=== PATIENT | male | born 1960 | race Caucasian/White ===

== ENCOUNTER 2016-03-24 08:37 | Outpatient (CLI) ==
[2015-07-16 14:58] VITALS: BMI 31.3
[2016-03-24 09:09] LABS: BASOPHILS # (AUTO) 0.1 K/uL (0-0.2); BASOPHILS % (AUTO) 0.9 % (0.0-3.0); BILIRUBIN,URINE Negative (NEGATIVE); EOSINOPHILS # (AUTO) 0.2 K/ul (0.0-0.7); EOSINOPHILS % (AUTO) 1.1 % (0.0-7.0); HEMATOCRIT 49.2 % (42.0-52.0); IMMATURE GRANULOCYTE % (AUTO) 0.5 % (0.0-5.0); KETONES,URINE Negative (NEGATIVE); LEUKOCYTE ESTERASE ,URINE Negative (NEGATIVE); LYMPHOCYTES % (AUTO) 14.5 (10.0-50.0); MEAN CORPUSCULAR HEMOGLOBIN 28.5 pg (27.0-31.0); MEAN CORPUSCULAR HGB CONC 32.5 (31.8-35.4); MEAN CORPUSCULAR VOLUME 87.5 fl (80.0-94.0); MONOCYTES # (AUTO) 0.9 K/uL (0.4-2.0); MONOCYTES % (AUTO) 6.7 (0-10); NEUTROPHILS # (AUTO) 10.5 K/ul (2.0-6.9); NEUTROPHILS % (AUTO) 76.3; NITRITE,URINE Negative (NEGATIVE); PH,URINE 5.5 (5-9); PLATELET COUNT 461 10^3/uL (140-440); PROTEIN,URINE 2+ (NEGATIVE); RED BLOOD COUNT 5.62 10^6/ul (4.70-6.10); URINE, BLOOD Negative (NEGATIVE); WHITE BLOOD COUNT 13.79 K/ul (4.2-10.2)
[2016-03-24 09:13] LABS: ADD URINE MICROSCOPIC YES
[2016-03-24 09:45] LABS: ALBUMIN/GLOBULIN RATIO 1.03; ANION GAP 18.6; BILIRUBIN,TOTAL 0.61 mg/dL (0.00-1.20); BUN/CREATININE RATIO 18.86; CALCIUM 9.9 mg/dL (8.2-10.2); CREATININE 1.06 mg/dL (0.60-1.10); POTASSIUM 3.6 mmol/L (3.5-5.1); TOTAL PROTEIN 7.9 g/dL (6.4-8.2)
== END 2016-03-24 08:38 | disposition home or self-care (01) ==
LOC: LAB 08:37
PROVIDERS: ATTEND General Practice
DX: E11.8 Type 2 diabetes mellitus with unspecified complications (principal); M54.5 Low back pain; I10 Essential (primary) hypertension; E88.81 Metabolic syndrome and other insulin resistance; M79.605 Pain in left leg; Z86.73 Personal history of transient ischemic attack (TIA), and cerebral infarction without residual deficits; Z79.899 Other long term (current) drug therapy
CPT/HCPCS: 36415; 80053; 80061; 81001; 83036; 85025

== ENCOUNTER 2016-05-26 11:34 | Outpatient (CLI) ==
[2015-07-16 14:58] VITALS: BMI 31.3
[2016-05-26 14:05] LABS: ALBUMIN 3.7 g/dL (3.4-5.0); ALBUMIN/GLOBULIN RATIO 0.97; ANION GAP 17.8; BILIRUBIN,TOTAL 0.61 mg/dL (0.00-1.20); BUN/CREATININE RATIO 20.68; CALCIUM 9.4 mg/dL (8.2-10.2); CREATININE 0.87 mg/dL (0.60-1.10); POTASSIUM 3.8 mmol/L (3.5-5.1); TOTAL PROTEIN 7.5 g/dL (6.4-8.2)
== END 2016-05-26 11:35 | disposition home or self-care (01) ==
LOC: LAB 11:34
PROVIDERS: ATTEND General Practice
DX: I10 Essential (primary) hypertension (principal); E78.5 Hyperlipidemia, unspecified
CPT/HCPCS: 36415; 80053; 80061

== ENCOUNTER 2016-09-26 11:26 | Outpatient (CLI) ==
[2015-07-16 14:58] VITALS: BMI 31.3
[2016-09-26 12:38] LABS: BASOPHILS # (AUTO) 0.1 K/uL (0-0.2); BASOPHILS % (AUTO) 0.9 % (0.0-3.0); EOSINOPHILS # (AUTO) 0.1 K/ul (0.0-0.7); EOSINOPHILS % (AUTO) 1.5 % (0.0-7.0); IMMATURE GRANULOCYTE % (AUTO) 0.5 % (0.0-5.0); LYMPHOCYTES # (AUTO) 1.8 K/uL (0.60-3.4); LYMPHOCYTES % (AUTO) 19.5 (10.0-50.0); MEAN CORPUSCULAR HEMOGLOBIN 29.5 pg (27.0-31.0); MEAN CORPUSCULAR HGB CONC 33.3 (31.8-35.4); MEAN CORPUSCULAR VOLUME 88.6 fl (80.0-94.0); MONOCYTES # (AUTO) 0.7 K/uL (0.4-2.0); MONOCYTES % (AUTO) 7.1 (0-10); NEUTROPHILS # (AUTO) 6.5 K/ul (2.0-6.9); NEUTROPHILS % (AUTO) 70.5; PLATELET COUNT 431 10^3/uL (140-440); RED BLOOD COUNT 5.42 10^6/ul (4.70-6.10); WHITE BLOOD COUNT 9.26 K/ul (4.2-10.2)
[2016-09-26 12:43] LABS: BILIRUBIN,URINE Negative (NEGATIVE); KETONES,URINE Negative (NEGATIVE); LEUKOCYTE ESTERASE ,URINE Negative (NEGATIVE); NITRITE,URINE Negative (NEGATIVE); PH,URINE 5.5 (5-9); PROTEIN,URINE 2+ (NEGATIVE); URINE, BLOOD Negative (NEGATIVE)
[2016-09-26 12:47] LABS: ADD URINE MICROSCOPIC YES
[2016-09-26 12:53] LABS: ALBUMIN 4.2 g/dL (3.4-5.0); ALBUMIN/GLOBULIN RATIO 1.2; ANION GAP 17.1; BILIRUBIN,TOTAL 0.42 mg/dL (0.00-1.20); BUN/CREATININE RATIO 15.3; CALCIUM 9.8 mg/dL (8.2-10.2); CHOL/HDL RATIO 5.5 (4.5-6.4); CREATININE 0.98 mg/dL (0.60-1.10); POTASSIUM 4.1 mmol/L (3.5-5.1); TOTAL PROTEIN 7.7 g/dL (6.4-8.2)
== END 2016-09-26 11:27 | disposition home or self-care (01) ==
LOC: LAB 11:26
PROVIDERS: ATTEND General Practice
DX: M79.605 Pain in left leg (principal); M54.5 Low back pain; I10 Essential (primary) hypertension; E11.8 Type 2 diabetes mellitus with unspecified complications; E88.81 Metabolic syndrome and other insulin resistance; E78.5 Hyperlipidemia, unspecified; Z86.73 Personal history of transient ischemic attack (TIA), and cerebral infarction without residual deficits; Z79.899 Other long term (current) drug therapy
CPT/HCPCS: 36415; 80053; 80061; 81001; 83036; 85025

== ENCOUNTER 2016-09-29 13:32 | Outpatient (CLI) ==
[2015-07-16 14:58] VITALS: BMI 31.3
--- NOTE | 2016-09-29 14:19 | DI ---
EXAM: Radiographs, left knee HISTORY: Left knee pain. COMPARISON: None available. TECHNIQUE: Four views. FINDINGS: Bone mineralization is normal. Serpiginous sclerosis seen in the distal femoral metadiap hysis. Mild medial compartment joint space narrowing and subchondral sclerosis noted. Mild margina l osteophyte formation seen in the patellofemoral compartment. No erosive changes are seen. Athero sclerotic calcifications are present. IMPRESSION: 1. Mild medial and patellofemoral osteoarthritis. 2. 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
== END 2016-09-29 13:33 | disposition home or self-care (01) ==
LOC: RAD 13:32
PROVIDERS: ATTEND General Practice
DX: M25.562 Pain in left knee (principal)

== ENCOUNTER 2016-12-29 12:37 | Outpatient (CLI) ==
[2015-07-16 14:58] VITALS: BMI 31.3
[2016-12-29 16:56] LABS: COCAIN SCREEN,URINE NEGATIVE (NEGATIVE)
== END 2016-12-29 12:38 | disposition home or self-care (01) ==
LOC: LAB 12:37
PROVIDERS: ATTEND General Practice
DX: F11.90 Opioid use, unspecified, uncomplicated (principal)
CPT/HCPCS: 80306

== ENCOUNTER 2017-02-20 12:55 | Outpatient (CLI) ==
[2015-07-16 14:58] VITALS: BMI 31.3
[2017-02-20 13:13] LABS: BASOPHILS # (AUTO) 0.1 K/uL (0-0.2); BASOPHILS % (AUTO) 1.1 % (0.0-3.0); EOSINOPHILS # (AUTO) 0.1 K/ul (0.0-0.7); EOSINOPHILS % (AUTO) 1.5 % (0.0-7.0); HEMATOCRIT 45.7 % (42.0-52.0); HEMOGLOBIN 15.1 g/dl (14.0-18.0); IMMATURE GRANULOCYTE % (AUTO) 0.4 % (0.0-5.0); LYMPHOCYTES # (AUTO) 1.3 K/uL (0.60-3.4); LYMPHOCYTES % (AUTO) 14.1 (10.0-50.0); MEAN CORPUSCULAR VOLUME 87.9 fl (80.0-94.0); MONOCYTES # (AUTO) 0.6 K/uL (0.4-2.0); MONOCYTES % (AUTO) 6.3 (0-10); NEUTROPHILS % (AUTO) 76.6; PLATELET COUNT 315 10^3/uL (140-440)
[2017-02-20 13:17] LABS: BILIRUBIN,URINE Negative (NEGATIVE); KETONES,URINE Negative (NEGATIVE); LEUKOCYTE ESTERASE ,URINE Negative (NEGATIVE); NITRITE,URINE Negative (NEGATIVE); PROTEIN,URINE Trace (NEGATIVE); URINE, BLOOD Negative (NEGATIVE)
[2017-02-20 13:19] LABS: ADD URINE MICROSCOPIC YES
[2017-02-20 13:27] LABS: CHOL/HDL RATIO 6.6 (4.5-6.4)
== END 2017-02-20 12:56 | disposition home or self-care (01) ==
LOC: LAB 12:55
PROVIDERS: ATTEND General Practice
DX: E88.81 Metabolic syndrome and other insulin resistance (principal); E11.8 Type 2 diabetes mellitus with unspecified complications; I10 Essential (primary) hypertension; Z12.5 Encounter for screening for malignant neoplasm of prostate; Z79.899 Other long term (current) drug therapy
CPT/HCPCS: 36415; 80061; 81001; 83036; 85025

== ENCOUNTER 2017-06-26 13:31 | Outpatient (CLI) ==
[2015-07-16 14:58] VITALS: BMI 31.3
== END 2017-06-26 13:32 | disposition home or self-care (01) ==
LOC: FCC-LAB 13:31
PROVIDERS: ATTEND General Practice
DX: E11.8 Type 2 diabetes mellitus with unspecified complications (principal); E55.9 Vitamin D deficiency, unspecified; E78.5 Hyperlipidemia, unspecified; I10 Essential (primary) hypertension; Z79.899 Other long term (current) drug therapy; Z86.73 Personal history of transient ischemic attack (TIA), and cerebral infarction without residual deficits
CPT/HCPCS: 36415; 80053; 80061; 81001; 82306; 83036; 85025

== ENCOUNTER 2017-08-24 11:28 | Outpatient (CLI) ==
[2015-07-16 14:58] VITALS: BMI 31.3
== END 2017-08-24 11:29 | disposition home or self-care (01) ==
LOC: FCC-LAB 11:28
PROVIDERS: ATTEND General Practice
DX: E55.9 Vitamin D deficiency, unspecified (principal)
CPT/HCPCS: 36415; 82306

== ENCOUNTER 2017-08-28 09:59 | Outpatient (CLI) ==
[2015-07-16 14:58] VITALS: BMI 31.3
--- NOTE | 2017-08-28 11:59 | CT ---
EXAM: CT scan abdomen pelvis without contrast HISTORY: Abnormal rectal exam COMPARISON: CT scan abdomen pelvis 02/14/2014 FINDINGS: Contiguous axial images obtained through the abdomen pelvis without contrast utilizing 5-m m collimation. Sagittal coronal reconstructions were imaged and reviewed. There is diffuse fatty in filtration with enlargement of the right lobe of liver. Gallbladder is fluid filled without cholelit hiasis. Pancreas spleen and right adrenal gland normal. There is stable thickening of the left adre nal gland. Atherosclerotic changes are seen involving the aorta without aneurysm formation. There i s a stable there has been interval increase in exophytic cyst interpolar region left kidney measures 4.9 cm. Prior measurement is 2.9 cm. Right kidney unremarkable.. Redemonstrated is a posterior pel antonia mass which appears to displace the rectosigmoid colon to the right of midline measuring 11.2 x 8. 0 x 6.4 cm. Prior measurement 7.2 x 5.3 x 10.3 centimeters. The bladder small volume which limits ev aluation. Prostate gland normal in size.. There are no osteoblastic or osteolytic IMPRESSION: Hepatomegaly with diffuse fatty infiltration. ASVD without aneurysm. Interval increase in left renal cyst which could be further evaluated with ultrasound. Mild interval increase in previously noted central pelvic mass which displaces the rectum to the righ t of midline..
== END 2017-08-28 10:00 | disposition home or self-care (01) ==
LOC: RAD 09:59
PROVIDERS: ATTEND General Practice
DX: K62.9 Disease of anus and rectum, unspecified (principal); R10.9 Unspecified abdominal pain
CPT/HCPCS: 82272

== ENCOUNTER 2017-09-14 08:32 | Outpatient (CLI) ==
[2015-07-16 14:58] VITALS: BMI 31.3
--- NOTE | 2017-09-14 11:05 | CT ---
EXAM: CT abdomen pelvis with contrast HISTORY: Kidney and pelvic mass COMPARISON: CT abdomen pelvis 08/28/2017 and CTA 02/14/2014 TECHNIQUE: Serial axial images of the abdomen pelvis were performed after 75 mL is of Omnipaque IV c ontrast was administered. These were obtained from the lung bases through the inferior pelvis. FINDINGS: The lung bases are clear. The liver demonstrates diffuse low attenuation. There is no focal hepatic lesion. The gallbladder i s unremarkable. The common duct is unremarkable. The adrenal glands are unremarkable. The right ki dney is unremarkable. The left kidney demonstrates an exophytic low attenuation lesion measuring 4.8 cm in diameter with Hounsfield units which are indeterminate. There is no hydronephrosis or hydrour eter. The spleen is unremarkable. The pancreas is unremarkable. Stomach is normal. The small bowel in the abdomen pelvis is normal. There is ventral abdominal yoder tases. There are surgical changes suggestive of prior appendectomy. Colon is unremarkable. There i s a heterogeneous central low attenuation mass in the pelvis on the left displacing the distal nondis tended colon measuring 5.8 x 7.2 cm with indeterminate Hounsfield units. Differences in measurement likely represent slice selection. There is moderate atherosclerotic disease. There is no lymphadeno max or free air. The osseous structures demonstrate degenerative disease of the spine. IMPRESSION: 1. Nonspecific low attenuation mass in the left pelvis causing mass effect on the adjacent nondisten ded colon. This is not significantly changed in comparison to prior study. This has been present sin ce 2013. 2. Low attenuation exophytic lesion of the left kidney is of indeterminate Hounsfield units and ultr asound is recommended. 3. Hepatic steatosis.
== END 2017-09-14 08:33 | disposition home or self-care (01) ==
LOC: RAD 08:32
PROVIDERS: ATTEND General Practice
DX: R19.00 Intra-abdominal and pelvic swelling, mass and lump, unspecified site (principal); N28.89 Other specified disorders of kidney and ureter
CPT/HCPCS: 36415; 82565

== ENCOUNTER 2017-09-18 07:27 | Outpatient (CLI) ==
[2015-07-16 14:58] VITALS: BMI 31.3
--- NOTE | 2017-09-18 09:19 | US ---
EXAM: Renal ultrasound HISTORY: Other specified disorders of kidney and ureter COMPARISON: CT 09/14/2017 TECHNIQUE: Renal ultrasound was performed. FINDINGS: Right kidney measures 4.1 x 3.8 x 10.7 cm. Left kidney measures 5.7 x 4.4 x 4.5 cm. Heydi l cortical echogenicity is normal. No hydronephrosis or renal calculus large enough to cause acousti c shadowing. There is a simple anechoic cyst in the left inferior kidney measuring 4.7 x 5.3 x 4.6 c m. Bladder only minimally distended and poorly evaluated, grossly unremarkable. Visualized liver ap pears echogenic. IMPRESSION: 1. 5.3 cm left renal cyst. 2. No hydronephrosis. 3. Hepatic steatosis
== END 2017-09-18 07:28 | disposition home or self-care (01) ==
LOC: RAD 07:27
PROVIDERS: ATTEND General Practice
DX: N28.89 Other specified disorders of kidney and ureter (principal)
CPT/HCPCS: 76770

== ENCOUNTER 2017-10-21 10:25 | Outpatient (CLI) ==
[2015-07-16 14:58] VITALS: BMI 31.3
== END 2017-10-21 10:26 | disposition home or self-care (01) ==
LOC: FCC-LAB 10:25
PROVIDERS: ATTEND General Practice
DX: E11.8 Type 2 diabetes mellitus with unspecified complications (principal); I10 Essential (primary) hypertension; E55.9 Vitamin D deficiency, unspecified; E78.5 Hyperlipidemia, unspecified; E88.81 Metabolic syndrome and other insulin resistance; Z79.899 Other long term (current) drug therapy; Z86.73 Personal history of transient ischemic attack (TIA), and cerebral infarction without residual deficits
CPT/HCPCS: 36415; 80053; 80061; 82306; 83036; 85025

== ENCOUNTER 2017-10-26 15:12 | Outpatient (CLI) ==
[2015-07-16 14:58] VITALS: BMI 31.3
== END 2017-10-26 15:13 | disposition home or self-care (01) ==
LOC: FCC-LAB 15:12
PROVIDERS: ATTEND General Practice
DX: Z79.899 Other long term (current) drug therapy (principal)
CPT/HCPCS: 81001

== ENCOUNTER 2017-12-10 20:42 | Emergency (ER) ==
[2017-12-10 20:44] VITALS: BP 133/92; TEMP 98.7; BMI 32.9
--- NOTE | 2017-12-10 20:58 | ED.PDOC ---
General ED Provider: Dr. АЛЕКСАНДР STOREY-ER Chief Complaint: Fall Stated Complaint: i fell and i hurt Time Seen by Physician: 20:45 Mode of Arrival: Walk-In Information Source: Patient Exam Limitations: No limitations [facility] and Triage Documentation Reviewed and Agree: Yes Does patient meet sepsis criteria?: No System Inflammatory Response Syndrome: Not Applicable Sepsis Protocol: For patient's 13 years and over: Temp is 96.8 and below OR 101 and greater Pulse >90 BPM Resp >20/minute Acutely Altered Mental Status Are patient's symptoms suggestive of a new infection, such as: -Pneumonia -Skin, Soft Tissue -Endocarditis -UTI -Bone, Joint Infection -Implantable Device -Acute Abdominal Infection -Wound Infection -Meningitis -Blood Stream Catheter Infection -Unknown Musculoskeletal Complaint Exam - Back Pain Complaint/Exam Mechanism of Injury: Reports: Trauma Onset/Duration: several hours Symptoms Are: Still present Timing: Constant Initial Severity: Mild Current Severity: Moderate Location: Reports: Discrete Character: Reports: Dull, Aching Aggravating: Reports: Movements, Lifting, Bending, Walking Alleviating: Reports: None Associated Signs and Symptoms: Denies: Swelling, Redness, Bruising, Fever, Weakness, Numbness, Tingling, Abdominal pain, Flank pain, Bladder incontinence, Bowel incontinence, Weight loss, Pain with weight bearing Epidural Abcess Risk Factors: Reports: None Related Surgical History: Reports: None Focal Tenderness: Yes Paraspinal Muscle Tenderness: No Paraspinal Muscle Spasm: No Scoliosis: No Lordosis: No Kyphosis: No SLR Test: Right Negative, Left Negative Hip Motion Testing Pain: Right Negative, Left Negative Focal Weakness: Present: None Focal Sensory Loss: Present: None Gait: Present: Normal Differential Diagnoses: Fracture, Strain, Sprain Review of Systems - Review Of Systems Constitutional: Reports: No symptoms Eyes: Reports: No symptoms Ears, Nose, Mouth, Throat: Reports: No symptoms Respiratory: Reports: No symptoms Cardiac: Reports: No symptoms GI: Reports: No symptoms : Reports: No symptoms Musculoskeletal: Reports: Back pain Skin: Reports: No symptoms Neurological: Reports: No symptoms Endocrine: Reports: No symptoms Hematologic/Lymphatic: Reports: No symptoms All Other Systems: Reviewed and Negative Past Medical History - Past Medical History Previously Healthy: No Endocrine: Reports: DM 2, Dyslipidemia Cardiovascular: Reports: Hypertension Respiratory: Reports: COPD Hematological: Reports: None Gastrointestinal: Reports: None Genitourinary: Reports: CKD Neuro/Psych: Reports: CVA Musculoskeletal: Reports: None Cancer: Reports: None - Surgical History General Surgical History: Reports: Appendectomy, Hernia Repair - Family History Family History: Reports: Unknown - Social History Smoking Status: Former smoker Hx Substance Use: No Alcohol Screening: None - Immunizations Tetanus Shot up to Date: No Physical Exam - Physical Exam Appearance: Well-appearing, No pain distress, Well-nourished Pain Distress: Moderate Eyes: RAISA, EOMI, Conjunctiva clear ENT: Ears normal, Nose normal, Oropharynx normal Neck: Supple Respiratory: Airway patent, Breath sounds clear, Breath sounds equal, Respirations nonlabored Cardiovascular: RRR, Pulses normal, No rub, No murmur GI/: Soft, Nontender, No masses, Bowel sounds normal, No Organomegaly Musculoskeletal: Limited ROM Skin: Warm, Dry, Normal color Neurological: Sensation intact, Motor intact, Reflexes intact, Cranial nerves intact, Alert, Oriented Psychiatric: Affect appropriate Interpretation - Radiology Interpretation Radiology Interpretation By: Radiologist Radiology Results: Negative Exam Interpreted: CT Scan Critical Care Note - Critical Care Note Total Time (mins): 0 Course - Course Orders, Labs, Meds: Orders Category Date Time Status CT LUMBAR SPINE W/O CONTRAST Stat RADS 12/10/17 20:[address] PELVIS W/O CONTRAST Stat RADS 12/10/17 20:47 Completed FEMUR, LEFT 2 VIEWS Stat RADS 12/10/17 20:47 Completed Vital Signs: Temp Pulse Resp BP Pulse Ox 12/10/17 20:42 98.7 F 87 18 133/92 H 96 Departure - Departure Time of Disposition: 22:08 Disposition: HOME SELF-CARE Discharge Problem: Contusion, back Qualifiers: Encounter type: initial encounter Laterality: unspecified laterality Qualified Code(s): S20.229A - Contusion of unspecified back wall of thorax, initial encounter Instructions: Contusion in Adults (ED) Condition: Good Pt referred to PMD for follow-up: No IPMP verified?: No Additional Instructions: norco 5mg q 6hrs prn pain #10---donut cushion--good luck in [place] next week considering perirectal mass Allergies/Adverse Reactions: Allergies No Known Allergies Allergy (Unverified 12/10/17 20:44) Home Medications: Ambulatory Orders Clopidogrel Bisulfate [Plavix] 75 mg PO DAILY 12/09/13 Allopurinol 100 mg PO DAILY 10/13/14 Lovastatin 40 mg PO BEDTIME 10/13/14 Penicillin V Potassium 500 mg PO QID #28 tablet 07/16/15 Disposition Discussed With: Patient, Family
--- NOTE | 2017-12-10 21:25 | DI ---
EXAM: Left femur; AP and lateral views HISTORY: Femur pain post fall FINDINGS: The joint spaces are maintained. No localized soft tissue abnormalities are appreciated. N o fracture or subluxation are detected. The bone density is normal. OPINION: No acute fracture or subluxation.
--- NOTE | 2017-12-10 21:28 | CT ---
EXAM: CT pelvis without contrast HISTORY: Fall on Thursday, tail bone pain and left thigh pain TECHNIQUE: Multi-slice transaxial helical with coronal and sagittal reformed images COMPARISON: CT pelvis from 09/14/2017 FINDINGS: The femoral acetabular joint spaces are mildly narrowed. The pubic symphysis and sacroilia c joint spaces are maintained. No acute fracture or subluxation appreciated. Specifically, the sacr um and coccyx are intact. The abdominal aorta and iliac arteries are atherosclerotic. There is a large cystic left pararectal mass measuring 8.5 x 6.1 cm. This has increased in time when compared to a prior studies. A small inguinal hernia transmits fat. The bones are free of suspicious osteolytic or osteoblastic lesions. IMPRESSION: 1. Indeterminate left pararectal mass. Recommend correlation with pelvic MRI without and with contr ast. This has increased in size over time. 2. No acute fracture or subluxation. 3. Mild femoral acetabular osteoarthritis. 4. ASCVD.
--- NOTE | 2017-12-10 21:31 | CT ---
EXAM: CT lumbar spine without contrast HISTORY: Low back pain post fall TECHNIQUE: Multi-slice transaxial helical with coronal and sagittal reformatted views. COMPARISON: None FINDINGS: There are five lumbar-type vertebrae. The intervertebral joint spaces are mildly narrowed diffusely. No fractures or lithesis are detected. The vertebrae have normal height and alignment. The re is mild nodular thickening of the left adrenal gland with low attenuation up to 2.6 cm. Segmental analysis: T12-L1: No significant disc herniation, central canal stenosis, or neural foramen stenosis. L1-L2: No significant disc herniation, central canal stenosis, or neural foramen stenosis. L2-L3: A mild broad-based disc bulge effaces the thecal sac. The central canal diameter is maintaine d. No significant disc herniation or central canal stenosis. L3-L4: A mild broad-based disc bulge effaces the thecal sac. The central canal diameter is mildly na rrowed. The facets are hypertrophic without significant neural foramen stenosis. L4-L5: A mild broad-based disc bulge effaces the thecal sac. The facets and ligamentum flavum are hy pertrophic. The central canal diameter is moderately narrowed. There is mild right greater than lef t neural foramen stenosis. L5-S1: A mild disc protrusion effaces thecal sac. The central canal diameter is mildly narrowed. Th e facets, hypertrophic with mild bilateral neural foramen stenosis. IMPRESSION: 1. No acute fracture or listhesis. 2. Central canal stenosis; mild at L3-L4, moderate at L formation five, and mild at L5-S1. 3. Neural foramen stenosis; mild right greater than left at L4-L5 and mild in bilaterally at L5-S1. 4. Probable left adrenal adenoma.
== END 2017-12-10 22:12 | disposition home or self-care (01) ==
LOC: ED 20:42
DX: S20.229A Contusion of unspecified back wall of thorax, initial encounter (principal); W19.XXXA Unspecified fall, initial encounter
CPT/HCPCS: 99282

== ENCOUNTER 2017-12-18 20:26 | Emergency (ER) ==
[2017-12-18 20:31] VITALS: BP 138/80; TEMP 97.6; BMI 32.7
--- NOTE | 2017-12-18 20:37 | ED.PDOC ---
General ED Provider: Dr. АЛЕКСАНДР STOREY-ER Chief Complaint: Knee Pain/Injury Stated Complaint: i fell and hurt my knee Time Seen by Physician: 20:36 Mode of Arrival: Ambulance Information Source: Patient Exam Limitations: No limitations [facility] T[facility] Documentation Reviewed and Agree: Yes Does patient meet sepsis criteria?: No System Inflammatory Response Syndrome: Not Applicable Sepsis Protocol: For patient's 13 years and over: Temp is 96.8 and below OR 101 and greater Pulse >90 BPM Resp >20/minute Acutely Altered Mental Status Are patient's symptoms suggestive of a new infection, such as: -Pneumonia -Skin, Soft Tissue -Endocarditis -UTI -Bone, Joint Infection -Implantable Device -Acute Abdominal Infection -Wound Infection -Meningitis -Blood Stream Catheter Infection -Unknown Musculoskeletal Complaint Exam - Knee Pain Complaint/Exam Mechanism of Injury: Reports: Trauma Onset/Duration: one hour Symptoms Are: Still present Onset of Pain: Reports: Immediate Initial Severity: Mild Current Severity: Mild Location: Reports: Discrete Character: Reports: Dull, Aching Aggravating: Reports: Movement, Weight bearing, Prolonged standing Associated Signs and Symptoms: Denies: Swelling, Redness, Bruising, Fever, Weakness, Numbness, Tingling Able to Bear Weight: No Knee Findings: Present: Tenderness, Limited range of motion Nargis Test Positive: No Dejah Test Positive: No Differential Diagnoses: Contusion, Closed Fracture, Internal Derangement, Sprain , Strain Review of Systems - Review Of Systems Constitutional: Reports: No symptoms Eyes: Reports: No symptoms Ears, Nose, Mouth, Throat: Reports: No symptoms Respiratory: Reports: No symptoms Cardiac: Reports: No symptoms GI: Reports: No symptoms : Reports: No symptoms Musculoskeletal: Reports: Joint pain, Muscle pain Skin: Reports: No symptoms Neurological: Reports: No symptoms Endocrine: Reports: No symptoms Hematologic/Lymphatic: Reports: No symptoms All Other Systems: Reviewed and Negative Past Medical History - Past Medical History Previously Healthy: No Endocrine: Reports: DM 2, Dyslipidemia Cardiovascular: Reports: Hypertension Respiratory: Reports: COPD Hematological: Reports: None Gastrointestinal: Reports: None Genitourinary: Reports: CKD Neuro/Psych: Reports: CVA Musculoskeletal: Reports: None Cancer: Reports: None - Surgical History General Surgical History: Reports: Appendectomy, Hernia Repair - Family History Family History: Reports: Unknown - Social History Smoking Status: Former smoker Hx Substance Use: No Alcohol Screening: None - Immunizations Tetanus Shot up to Date: No Physical Exam - Physical Exam Appearance: Well-appearing, No pain distress, Well-nourished Pain Distress: Mild Eyes: RAIAS, EOMI, Conjunctiva clear ENT: Ears normal, Nose normal, Oropharynx normal Neck: Supple Respiratory: Airway patent, Breath sounds clear, Breath sounds equal, Respirations nonlabored Cardiovascular: RRR, Pulses normal, No rub, No murmur GI/: Soft Musculoskeletal: Normal strength, ROM intact, No edema, No calf tenderness Skin: Warm, Dry, Normal color Neurological: Sensation intact, Motor intact, Reflexes intact, Cranial nerves intact, Alert, Oriented Psychiatric: Affect appropriate, Mood appropriate Interpretation - Radiology Interpretation Radiology Interpretation By: Radiologist Radiology Results: Positive Critical Care Note - Critical Care Note Total Time (mins): 0 Course - Course Orders, Labs, Meds: Orders Category Date Time Status KNEE, LEFT 4 VIEWS Stat RADS 12/18/17 20:32 Completed TIBIA/FIBULA, LEFT 2 VIEWS Stat RADS 12/18/17 20:33 Completed Vital Signs: Temp Pulse Resp BP Pulse Ox 12/18/17 20:27 97.6 F 76 20 138/80 96 Departure - Departure Time of Disposition: 21:40 Disposition: HOME SELF-CARE Discharge Problem: Patellar fracture Qualifiers: Encounter type: subsequent encounter Fracture type: closed Fracture morphology : unspecified fracture morphology Fracture alignment: nondisplaced Laterality: left Fracture healing: with routine healing Qualified Code(s): S82.002D - Unspecified fracture of left patella, subsequent encounter for closed fracture with routine healing Instructions: Patellar Fracture (ED) Condition: Good Pt referred to PMD for follow-up: Yes IPMP verified?: No Additional Instructions: stay in [place]--use crutches---see your pcp and get referral to ortho Allergies/Adverse Reactions: Allergies No Known Allergies Allergy (Unverified 12/10/17 20:44) Home Medications: Ambulatory Orders Clopidogrel Bisulfate [Plavix] 75 mg PO DAILY 12/09/13 Allopurinol 100 mg PO DAILY 10/13/14 Lovastatin 40 mg PO BEDTIME 10/13/14 Hydrocodone/Acetaminophen [Hydrocodone-Acetamin 7.5-325] 1 tab PO Q4HR 12/18/17 Disposition Discussed With: Patient, Family
--- NOTE | 2017-12-18 21:24 | DI ---
EXAM: Two-view left tibia-fibula COMPARISON: Left knee from same day HISTORY: Trauma and pain FINDINGS: There is no acute fracture or dislocation. Alignment is anatomic. Joint spaces are well p reserved and there is no significant degenerative change. There is no soft tissue swelling. No unexpe cted radio-opaque foreign bodies. IMPRESSION: No acute osseous abnormality.
--- NOTE | 2017-12-18 21:26 | DI ---
EXAM: Three-view left knee COMPARISON: Knee left tibia-fibula from same day HISTORY: Trauma and pain FINDINGS: There is a linear vertical lucency seen on the sunrise view in the patella. There are no di splaced fractures identified. There is some minimal degenerative change. There is no soft tissue swe lling. No unexpected radio-opaque foreign bodies. IMPRESSION: 1. Possible nondisplaced patellar fracture versus artifact. Recommend correlation with point tender ness.
[2017-12-18] MEDS ORDERED: MORPHINE 4 MG/ML SYRINGE IM STA (21:42)
[2017-12-18] MEDS ORDERED: ZOFRAN 4 MG/2 ML IM STA (21:42)
== END 2017-12-18 22:30 | disposition home or self-care (01) ==
LOC: ED 20:26
DX: M25.562 Pain in left knee (principal); S82.002D Unspecified fracture of left patella, subsequent encounter for closed fracture with routine healing
CPT/HCPCS: 96372; 99283

== ENCOUNTER 2018-01-11 21:18 | Emergency (ER) ==
[2018-01-11 21:29] VITALS: BP 143/92; TEMP 99.1; BMI 32.6
--- NOTE | 2018-01-11 21:39 | ED.PDOC ---
General ED Provider: Dr. АЛЕКСАНДР STOREY-ER Chief Complaint: Tooth Problem Stated Complaint: my tooth hurts Time Seen by Physician: 21:37 Mode of Arrival: Walk-In Information Source: Patient Exam Limitations: No limitations [facility] T[facility] Documentation Reviewed and Agree: Yes Does patient meet sepsis criteria?: No System Inflammatory Response Syndrome: Not Applicable Sepsis Protocol: For patient's 13 years and over: Temp is 96.8 and below OR 101 and greater Pulse >90 BPM Resp >20/minute Acutely Altered Mental Status Are patient's symptoms suggestive of a new infection, such as: -Pneumonia -Skin, Soft Tissue -Endocarditis -UTI -Bone, Joint Infection -Implantable Device -Acute Abdominal Infection -Wound Infection -Meningitis -Blood Stream Catheter Infection -Unknown EENT Complaint Exam - Dental/Oral Complaint/Exam Mechanism of Injury: No known trauma Onset/Duration: 3 days Symptoms Are: Still present Timing: Constant Initial Severity: Mild Current Severity: Moderate Location: right lower pre molar Character: Reports: Dull, Aching, Throbbing Associated Signs and Symptoms: Reports: Swelling Related History: Reports: Previous tooth problem Tooth Findings: Present: Percussion tenderness Cervical Lymphadenopathy Present: No Facial Swelling Present: No Bleeding Present: No Oropharynx Findings: Absent: Clots, Active bleeding Septal Hematoma: No Foreign Body Present: No Dysphagia Present: No Drooling Present: No Asymmetrical Tonsillar Swelling Present: No Uvula Midline: Yes Pratibha-tonsillar Fluctuence: No Trismus Present: No Palatal Petechiae Present: No Scarlatinaform Rash Present: No Differential Diagnoses: Dental Caries Review of Systems - Review Of Systems Constitutional: Reports: No symptoms Eyes: Reports: No symptoms Ears, Nose, Mouth, Throat: Reports: Mouth pain Respiratory: Reports: No symptoms Cardiac: Reports: No symptoms GI: Reports: No symptoms : Reports: No symptoms Musculoskeletal: Reports: No symptoms Skin: Reports: No symptoms Neurological: Reports: No symptoms Endocrine: Reports: No symptoms Hematologic/Lymphatic: Reports: No symptoms All Other Systems: Reviewed and Negative Past Medical History - Past Medical History Previously Healthy: No Endocrine: Reports: DM 2, Dyslipidemia Cardiovascular: Reports: Hypertension Respiratory: Reports: COPD Hematological: Reports: None Gastrointestinal: Reports: None Genitourinary: Reports: CKD Neuro/Psych: Reports: CVA Musculoskeletal: Reports: None Cancer: Reports: None - Surgical History General Surgical History: Reports: Appendectomy, Hernia Repair - Family History Family History: Reports: Unknown - Social History Smoking Status: Former smoker Hx Substance Use: No Alcohol Screening: None - Immunizations Tetanus Shot up to Date: No Physical Exam - Physical Exam Appearance: Well-appearing, No pain distress, Well-nourished Eyes: RAISA, EOMI, Conjunctiva clear ENT: Ears normal, Nose normal, Oropharynx normal, Erythema (noted erythematous gums with exposed tooth tender to palpation) Neck: Supple Respiratory: Airway patent, Breath sounds clear, Breath sounds equal, Respirations nonlabored Cardiovascular: RRR, Pulses normal, No rub, No murmur GI/: Soft, Nontender, No masses, Bowel sounds normal, No Organomegaly Musculoskeletal: Normal strength, ROM intact, No edema, No calf tenderness Skin: Warm Neurological: Sensation intact, Motor intact, Reflexes intact, Cranial nerves intact, Alert, Oriented Psychiatric: Affect appropriate Critical Care Note - Critical Care Note Total Time (mins): 0 Course - Course Vital Signs: Temp Pulse Resp BP Pulse Ox 01/11/18 21:20 99.1 F 108 H 20 143/92 H 96 Departure - Departure Time of Disposition: 21:39 Disposition: HOME SELF-CARE Discharge Problem: Toothache Instructions: Dental Abscess (ED) Condition: Good Pt referred to PMD for follow-up: Yes IPMP verified?: No Additional Instructions: augmentin 875mg bid x 7 days --norco 5mg q 6hrs prn pain #10---f/u dentist aren Allergies/Adverse Reactions: Allergies No Known Allergies Allergy (Verified 01/11/18 21:29) Home Medications: Ambulatory Orders Clopidogrel Bisulfate [Plavix] 75 mg PO DAILY 12/09/13 Allopurinol 100 mg PO DAILY 10/13/14 Lovastatin 40 mg PO BEDTIME 10/13/14 Hydrocodone/Acetaminophen [Hydrocodon-Acetaminophn 10-325] 10 - 325 mg PO Q4H PRN 01/11/18 Metformin HCl 500 mg PO BID 01/11/18 Disposition Discussed With: Patient, Family
== END 2018-01-11 21:45 | disposition home or self-care (01) ==
LOC: ED 21:18
DX: K08.89 Other specified disorders of teeth and supporting structures (principal); K04.7 Periapical abscess without sinus
CPT/HCPCS: 99282

== ENCOUNTER 2018-04-20 11:25 | Outpatient (CLI) | END 2018-04-20 11:26 | disposition home or self-care (01) | LOC: RHC-LAB 11:25 | PROVIDERS: ATTEND General Practice | DX: M54.5 Low back pain (principal); M79.605 Pain in left leg; I10 Essential (primary) hypertension; E11.8 Type 2 diabetes mellitus with unspecified complications; Z12.5 Encounter for screening for malignant neoplasm of prostate; Z79.899 Other long term (current) drug therapy | CPT/HCPCS: 36415; 80053; 80061; 81001; 83036; 85025 ==

== ENCOUNTER 2018-06-08 08:48 | Outpatient (CLI) | END 2018-06-08 08:49 | disposition home or self-care (01) | LOC: RHC-LAB 08:48 | PROVIDERS: ATTEND General Practice | DX: E88.81 Metabolic syndrome and other insulin resistance (principal); I10 Essential (primary) hypertension; E11.8 Type 2 diabetes mellitus with unspecified complications; Z79.899 Other long term (current) drug therapy | CPT/HCPCS: 36415; 80053; 80061; 81001; 85025 ==

== ENCOUNTER 2018-08-06 09:15 | Outpatient (CLI) | END 2018-08-06 09:16 | disposition home or self-care (01) | LOC: LAB 09:15 | PROVIDERS: ATTEND General Practice | DX: E11.8 Type 2 diabetes mellitus with unspecified complications (principal); E78.5 Hyperlipidemia, unspecified; Z79.899 Other long term (current) drug therapy | CPT/HCPCS: 36415; 80053; 80061; 81001; 83036; 85025 ==

== ENCOUNTER 2018-11-29 08:58 | Outpatient (CLI) | payer OTHER | END 2018-11-29 08:59 | disposition home or self-care (01) | LOC: RHC-LAB 08:58 | PROVIDERS: ATTEND General Practice | DX: E11.8 Type 2 diabetes mellitus with unspecified complications (principal); Z79.899 Other long term (current) drug therapy; E88.81 Metabolic syndrome and other insulin resistance | CPT/HCPCS: 36415; 80053; 80061; 81001; 83036; 85025 ==